=== PATIENT | male | born 1990 | race Caucasian/White ===

== ENCOUNTER 2018-04-20 18:19 | Emergency (ER) | payer SELFPAY ==
[~2018-04-20] VITALS: Ht 177.8 cm; Wt 189.1 kg
[2018-04-20 18:30] VITALS: BP 150/79
--- NOTE | 2018-04-20 18:42 | PHYS DOC ---
Adult General Chief Complaint Chief Complaint: LACERATION/AVULSION [facility] HPI 27-year-old male presents with left hand laceration. Security just prior to arrival. The patient was working with his tremors cutting a rather thick by when they broke apart and the blade slipped and lacerated his left hand between the thumb and is secondary digit. The patient had immediate pain and bleeding. He can tell that the laceration was deep in her car stitches so he can emergency room. He was able to wrap it up and get the bleeding to stop prior to arrival. At this time the bleeding is controlled. His tetanus shot is up-to- date. He denies any other injuries. He has 2 lacerations on that hand one that is 5 cm in length and one that is 3 cm. Review of Systems Review of Systems Constitutional: Denies fever or chills [] Eyes: Denies change in visual acuity, redness, or eye pain [] HENT: Denies nasal congestion or sore throat [] Respiratory: Denies cough or shortness of breath [] Cardiovascular: No additional information not addressed in HPI [] GI: Denies abdominal pain, nausea, vomiting, bloody stools or diarrhea [] : Denies dysuria or hematuria [] Musculoskeletal: Denies back pain or joint pain [] Integument: Left hand laceration[] Neurologic: Denies headache, focal weakness or sensory changes [] Endocrine: Denies polyuria or polydipsia [] All other systems were reviewed and found to be within normal limits, except as documented in this note. Physical Exam Physical Exam Constitutional: Well developed, well nourished, no acute distress, non-toxic appearance. [] HENT: Normocephalic, atraumatic, bilateral external ears normal, oropharynx moist, no oral exudates, nose normal. [] Eyes: PERRLA, EOMI, conjunctiva normal, no discharge. [] Neck: Normal range of motion, no tenderness, supple, no stridor. [] Cardiovascular:Heart rate regular rhythm, no murmur [] Lungs & Thorax: Bilateral breath sounds clear to auscultation [] Abdomen: Bowel sounds normal, soft, no tenderness, no masses, no pulsatile masses. [] Skin: 5 cm linear laceration of left palm between the first and second digit, through skin and subcutaneous tissue. No apparent tendon involvement. 3 cm one- year laceration superficial parallel with the first laceration.[] Back: No tenderness, no CVA tenderness. [] Extremities: Neurovascularly intact in left hand. Lacerations does not appear to involve the tendon. He has full range of motion with all 5 digits.[] Neurologic: Alert and oriented X 3, normal motor function, normal sensory function, no focal deficits noted. [] Psychologic: Affect normal, judgement normal, mood normal. [] EKG EKG [] Radiology/Procedures Radiology/Procedures [] Course & Med Decision Making Course & Med Decision Making Pertinent Labs and Imaging studies reviewed. (See chart for details) The patient's lacerations were repaired with sutures. See wound repair note for more details. Given the potential contamination from the blade, cover the patient with Keflex. We'll give his first dose in the ER. I will also discharge him with a short course of [place] 5/325 for pain. He is stable for discharge at this time. [] Dragon Disclaimer Dragon Disclaimer This electronic medical record was generated, in whole or in part, using a voice recognition dictation system. Laceration Repair Lac Repair Indication: [Left hand laceration, 2 linear wounds. I received verbal consent from the patient for his laceration repair. The correct site and procedure was identified by all parties.] Procedure: The patient was placed in the appropriate position and the area was then cleaned with normal saline Hibiclens bath followed by normal saline under pressure. No foreign bodies were found. One percent lidocaine without epi was used for anesthesia. A total of 6 mL was used. The laceration was closed with 4 -0 Ethilon sutures. The first one was 5 cm in length was closed with 6 sutures. The second wound was 3 cm in length and was closed with 4. These were all interrupted. There was good skin approximation. Both wounds. Hemostasis was achieved. An antibiotic ointment was placed over the wounds and then they were covered with a clean dressing. Total repaired wound length: 5 cm, 3 cm. Other Items: None The patient tolerated the procedure well. Complications: None. Departure Departure: Referrals: PCP,NO (PCP) Scripts Hydrocodone Bit/Acetaminophen (NORCO 5-325 TABLET) 1 Each Tablet 1 TAB PO PRN Q6HRS PRN for PAIN, #10 TAB 0 Refills Prov: HERMES JOHNSON DO 04/20/18 Cephalexin (KEFLEX) 500 Mg Capsule 1 CAP PO TID for 5 Days, #15 CAP Prov: HERMES JOHNSON DO 04/20/18 HERMES JOHNSON DO Apr 20, 2018 18:42
[2018-04-20] MEDS ORDERED: HYDROcodone/APAP 5/325MG 1 TAB TABLET PO ONE (19:30)
[2018-04-20] MEDS ORDERED: CEPH-264 PO (19:31)
[2018-04-20] MEDS ORDERED: HYDR-971 PO (19:31)
[2018-04-20] MEDS ORDERED: HYDROcodone/APAP 5/325MG 1 TAB TABLET ONE (19:37)
[2018-04-20] MEDS ORDERED: CEPHALEXIN 250 MG CAPSULE ONE (19:37)
[2018-04-20] MEDS ORDERED: CEPHALEXIN 250 MG CAPSULE PO ONE (19:45)
== END 2018-04-20 19:50 | disposition home or self-care (01) ==
LOC: ER 18:19
DX: S61.412A Laceration without foreign body of left hand, initial encounter (principal); W26.8XXA Contact with other sharp object(s), not elsewhere classified, initial encounter; Y93.89 Activity, other specified; Y92.89 Other specified places as the place of occurrence of the external cause; Y99.8 Other external cause status
CPT/HCPCS: 12004; 99284

== ENCOUNTER 2018-04-29 15:57 | Emergency (ER) | payer SELFPAY ==
[~2018-04-29] VITALS: Ht 177.8 cm; Wt 189.1 kg
[~2018-04-29 15:57] MED LIST: CEPH-264 PO; HYDR-971 PO
[2018-04-29 16:10] VITALS: BP 148/80
--- NOTE | 2018-04-29 16:18 | PHYS DOC ---
Past History Past Medical History: Asthma Past Surgical History: No Surgical History Alcohol Use: Occasionally Drug Use: None Adult General Chief Complaint Chief Complaint: SUTURE/STAPLE REMOVAL HPI HPI Patient is a 27-year-old male who presents for suture check/suture removal. Patient was seen here for laceration repair 9 days ago. Patient indicates that he has had no fever or other signs of infection but he does indicate that he has a deep ache in his hand especially when he flexes his fingers. He rates that pain at a 6 out of 10. He states that it feels like it's toothache in his hand. Review of Systems Review of Systems Constitutional: Denies fever or chills [] Respiratory: Denies cough or shortness of breath [] Musculoskeletal: Complains of left hand pain[] Integument: Denies rash or skin lesions [] Allergies Allergies Allergies Coded Allergies Type Severity Reaction Last Updated Verified No Known Drug Allergies 04/29/18 No Physical Exam Physical Exam Constitutional: Well developed, well nourished, no acute distress, non-toxic appearance. [] Cardiovascular:Heart rate regular rhythm, no murmur [] Lungs & Thorax: Bilateral breath sounds clear to auscultation [] Skin: Palmar aspect of left hand demonstrates 2 lacerations that appear to be healing well with no signs of infection. One of the wounds does not appear as if complete closure has occurred at this point.. [] Current Patient Data Vital Signs Vital Signs Date Time Temp Pulse Resp B/P (MAP) Pulse Ox O2 Delivery O2 Flow Rate FiO2 04/29/18 16:10 97.4 95 18 96 Room Air EKG EKG [] Radiology/Procedures Radiology/Procedures [] Course & Med Decision Making Course & Med Decision Making Pertinent Labs and Imaging studies reviewed. (See chart for details) [] Dragon Disclaimer Dragon Disclaimer This electronic medical record was generated, in whole or in part, using a voice recognition dictation system. Departure Departure: Impression: Primary Impression: Suture check Disposition: 01 HOME, SELF-CARE Condition: STABLE Referrals: PCP,NO (PCP) Patient Instructions: Sutured Wound Care Additional Instructions: Return to emergency room in 5-7 days for suture removal. HAYDEN TANNER Jr. DO Apr 29, 2018 16:18
[2018-04-29] MEDS ORDERED: IBUP800T19 PO (16:27)
== END 2018-04-29 16:27 | disposition home or self-care (01) ==
LOC: ER 15:57
DX: S61.412D Laceration without foreign body of left hand, subsequent encounter (principal); J45.909 Unspecified asthma, uncomplicated; K08.89 Other specified disorders of teeth and supporting structures; X58.XXXD Exposure to other specified factors, subsequent encounter
CPT/HCPCS: 99282

== ENCOUNTER 2018-08-11 11:04 | Emergency (ER) | payer SELFPAY ==
[~2018-08-11] VITALS: Ht 177.8 cm; Wt 189.1 kg
[~2018-08-11 11:04] MED LIST changes: +HYDR-3165 PO; -HYDR-971 PO; +IBUP800T19 PO
[2018-08-11 11:12] VITALS: BP 136/82
[2018-08-11] MEDS ORDERED: ALBU2.5V8 INH (11:25)
[2018-08-11] MEDS ORDERED: ALBU2.5V5 NEB (11:25)
[2018-08-11] MEDS ORDERED: PRED50TA PO (11:25)
--- NOTE | 2018-08-11 11:26 | PHYS DOC ---
Past History Past Medical History: Asthma Past Surgical History: No Surgical History Smoking: Quit Less Than 1 Year Alcohol Use: Occasionally Drug Use: None Adult General Chief Complaint Chief Complaint: SHORTNESS OF BREATH [facility] HPI Patient is a 27 year old male who presents with complaining of shortness of breath. Patient states he had history of asthma but did not have episodes of asthma for several years. Patient states she took care of his sister's dog and cat while she was out of town for the last few days and complaining of dry cough and shortness of breath for the last 2 days like his previous episodes of asthma attack but does not have any medication for his nebulizer. Patient denies fever and chills, chest pain, vomiting and diarrhea. Review of Systems Review of Systems Constitutional: Denies fever or chills [] Eyes: Denies change in visual acuity, redness, or eye pain [] HENT: Denies nasal congestion or sore throat [] Respiratory: Reports cough and shortness of breath Cardiovascular: No additional information not addressed in HPI [] GI: Denies abdominal pain, nausea, vomiting, bloody stools or diarrhea [] : Denies dysuria or hematuria [] Musculoskeletal: Denies back pain or joint pain [] Integument: Denies rash or skin lesions [] Neurologic: Denies headache, focal weakness or sensory changes [] Endocrine: Denies polyuria or polydipsia [] All other systems were reviewed and found to be within normal limits, except as documented in this note. Allergies Allergies Allergies Coded Allergies Type Severity Reaction Last Updated Verified No Known Drug Allergies 04/29/18 No Physical Exam Physical Exam Constitutional: Well developed, well nourished, mild distress, non-toxic appearance, morbidly obese. [] HENT: Normocephalic, atraumatic, bilateral external ears normal, oropharynx moist, no oral exudates, nose normal. [] Eyes: PERRLA, EOMI, conjunctiva normal, no discharge. [] Neck: Normal range of motion, no tenderness, supple, no stridor. [] Cardiovascular:Heart rate regular rhythm, no murmur [] Lungs & Thorax: No acute respiratory distress, mild wheezing. Abdomen: Bowel sounds normal, soft, no tenderness, no masses, no pulsatile masses. [] Skin: Warm, dry, no erythema, no rash. [] Back: No tenderness, no CVA tenderness. [] Extremities: No tenderness, no cyanosis, no clubbing, ROM intact, no edema. [] Neurologic: Alert and oriented X 3, normal motor function, normal sensory function, no focal deficits noted. [] Psychologic: Affect normal, judgement normal, mood normal. [] Current Patient Data Vital Signs Vital Signs Date Time Temp Pulse Resp B/P (MAP) Pulse Ox O2 Delivery O2 Flow Rate FiO2 08/11/18 11:12 90 08/11/18 11:12 97.8 96 EKG EKG [] Radiology/Procedures Radiology/Procedures [] Course & Med Decision Making Course & Med Decision Making Evaluation of patient in ER showed 27-year-old male patient with history of asthma presented with asthma attack after exposure to animal. Because of lack of insurance patient did not want any treatment in ER. Prescription for inhaler and nebulizer and prednisone was given. Patient has appointment with yandel moore in 2 weeks. Dragon Disclaimer Dragon Disclaimer This electronic medical record was generated, in whole or in part, using a voice recognition dictation system. Departure Departure: Impression: Primary Impression: Asthma attack Disposition: HOME, SELF-CARE (At 1120) Condition: STABLE Referrals: [facility] (PCP) Patient Instructions: Asthma Attacks, Prevention, Asthma, Adult Additional Instructions: Drink plenty of liquids Follow-up with your primary care physician in 3-5 days Return to ER if not getting better Scripts Prednisone (PREDNISONE) 50 Mg Tablet 1 TAB PO DAILY for asthma exacerbation, #5 TAB Prov: GUERDA ALICEA MD 08/11/18 Albuterol Sulfate (PROAIR HFA INHALER) 8.5 Gm Hfa.aer.ad 2 PUFF INH PRN Q6HRS PRN for SHORTNESS OF BREATH, #1 INHALER 0 Refills Prov: GUERDA ALICEA MD 08/11/18 Albuterol Sulfate (ALBUTEROL SULFATE NEB SOLN ) 2.5 Mg/3 Ml Vial.neb 2.5 MG NEB Q4-6HRS PRN for SHORTNESS OF BREATH, #25 EACH 0 Refills Prov: GUERDA ALICEA MD 08/11/18 GUERDA ALICEA MD Aug 11, 2018 11:26
== END 2018-08-11 11:30 | disposition home or self-care (01) ==
LOC: ER 11:04
DX: J45.901 Unspecified asthma with (acute) exacerbation (principal); Z87.891 Personal history of nicotine dependence
CPT/HCPCS: 99283